=== PATIENT | female | born 1995 | race American Indian/Alaskan Native ===

== ENCOUNTER 2016-09-30 14:43 | Emergency (ER) | payer MEDICAID, OTHER ==
[2016-09-30 14:43] VITALS: BMI 22.4
[2016-09-30] MEDS ORDERED: Sodium Chloride 0.9% 1,000 ML IV ONE (15:22)
[2016-09-30] MEDS ORDERED: Sodium Chloride 0.9% 1,000 ML ONE (15:42)
[2016-09-30 15:45] LABS: BASO # 0.1 K/uL (0.0-0.2); BASO % 0.4 % (0.0-2.0); EOS # 0.1 K/uL (0.0-0.7); EOS % 0.7 % (0.0-4.0); HEMATOCRIT 38.2 % (34.0-47.0); LYMPH # 0.6 K/uL (1.0-4.3); LYMPH % 4.4 % (20.0-40.0); MEAN CELL VOLUME 83.4 fL (81.0-99.0); MEAN CORPUSCULAR HEMOGLOBIN 26.7 pg (27.0-31.0); MEAN PLATELET VOLUME 7.9 fL (7.2-11.7); MONO # 0.7 K/uL (0.0-0.8); MONO % 5.1 % (0.0-10.0); PLATELET COUNT 360 K/uL (130-400); RED CELL DISTRIBUTION WIDTH 15.7 % (11.5-14.5); WHITE BLOOD COUNT 12.8 K/uL (4.8-10.8)
[2016-09-30 15:45] LABS: RBC URINE < 1 /hpf (0-3); URINE BACTERIA RARE (<OCC); URINE BILIRUBIN NEGATIVE (NEGATIVE); URINE BLOOD 1+ (NEGATIVE); URINE COLOR Yellow (YELLOW); URINE GLUCOSE (UA) NORMAL (Normal); URINE KETONE NEGATIVE (NEGATIVE); URINE LEUKOCYTE ESTERASE TRACE Leu/uL (Negative); URINE PROTEIN NEGATIVE (NEGATIVE); URINE UROBILINOGEN NORMAL mg/dL (0.2-1.0); WBC URINE 5 /hpf (0-5)
[2016-09-30 15:52] LABS: CHLORIDE 103 mmol/L (98-107); POTASSIUM 4.1 mmol/L (3.6-5.2); SODIUM 139 mmol/L (132-148)
[2016-09-30 15:54] LABS: ALB/GLOB RATIO 1.2 (1.0-2.1); ALKALINE PHOSPHATASE 123 U/L (38-126); AST/SGOT 31 U/L (14-36); BILIRUBIN,TOTAL 0.6 mg/dL (0.2-1.3); BLOOD UREA NITROGEN 7 mg/dL (7-17); CARBON DIOXIDE 26 mmol/L (22-30); GFR AFRICAN-AMERICAN > 60; TOTAL PROTEIN 8.1 g/dL (6.3-8.3)
[2016-09-30 15:55] LABS: ALT/SGPT 23 U/L (9-52); CALCIUM 9.7 mg/dl (8.6-10.4); GLUCOSE,RANDOM 104 mg/dL (65-105)
--- NOTE | 2016-09-30 16:06 | C.PDOC ---
History Of Present Illness 21 yr old females/p June 2016, presents to the ER with complaints of nausea, vomiting and abdominal pain for the past 2 days but states its been waxing and waning over the past 3 months. Patient states she is sexually active since giving . Denies control, fever, chills, dysuria, incontinence, vaginal discharge, back pain, weakness or numbness. Time Seen by Provider: 09/30/16 15:05 Chief Complaint (Nursing): Abdominal Pain History Per: Patient History/Exam Limitations: no limitations Onset/Duration Of Symptoms: Days (3 days), Waxing/Waning (3 months ) Past Medical History Reviewed: Historical Data, Nursing Documentation, Vital Signs Vital Signs: Last Vital Signs Temp 98.1 F 09/30/16 14:50 Pulse 101 H 09/30/16 14:50 Resp 18 09/30/16 14:50 BP 108/72 09/30/16 14:50 Pulse Ox 97 09/30/16 17:58 - [facility] Procedures DELIVERY OF PRODUCTS OF CONCEPTION, EXTERNAL APPROACH (06/26/16) INJECT/INFUSE NEC (06/12/14) INTRODUCE OF OTH THERAP SUBST INTO FEM REPROD, VIA OPENING (06/26/16) Family History: States: No Known Family Hx - Social History Hx Tobacco Use: No Hx Alcohol Use: No Hx Substance Use: No - Immunization History Hx Tetanus Toxoid Vaccination: Yes Hx Influenza Vaccination: Yes Hx Pneumococcal Vaccination: Yes Review Of Systems Except As Marked, All Systems Reviewed And Found Negative. Constitutional: Negative for: Fever, Chills Gastrointestinal: Positive for: Nausea, Vomiting, Abdominal Pain Genitourinary: Negative for: Dysuria, Incontinence, Vaginal Discharge Musculoskeletal: Negative for: Back Pain Neurological: Negative for: Weakness, Numbness Physical Exam - Physical Exam Appears: Well, Non-toxic, No Acute Distress Skin: Warm, Dry, No Rash Head: Atraumatic, Normacephalic Chest: Symmetrical, No Tenderness Cardiovascular: Rhythm Regular, No Murmur Respiratory: Normal Breath Sounds, No Rales, No Rhonchi, No Wheezing Gastrointestinal/Abdominal: Soft, Tenderness (Diffuse), No Mass, No Guarding, No Rebound Pelvic: No Vaginal Discharge, No Mass Extremity: Normal ROM, No Swelling Neurological/Psych: Oriented x3, Normal Speech, Normal Motor ED Course And Treatment - Laboratory Results Result Diagrams: 09/30/16 15:40 09/30/16 15:40 Lab Interpretation: Abnormal (+ mild leukocytosis , ? related to small bowel or vomiting, UA neg,) Urine POC: Negative O2 Sat by Pulse Oximetry: 97 - Radiology CXR: Interpreted by Me CXR Interpretation: Yes: No Acute Disease - Other Rad X-Ray - Obstructive Series X-Ray: Viewed By Me, Read By Radiologist Interpretation: Constipation. Nonobstructive bowel gas pattern. - CT Scan/US US - Pelvis Other Rad Studies (CT/US): Read By Radiologist, Radiology Report Reviewed CT/US Interpretation: HISTORY: vague belly pain 3 mo post . COMPARISON: None available. TECHNIQUE: Transabdominal and transvaginal pelvic ultrasound was performed. FINDINGS: UTERUS: Measures 7.0 x 3.1 x 4.2 cm. Anteverted, normal in size and appearance. No fibroid or other mass lesion seen. ENDOMETRIUM: Measures 11 mm in diameter. Unremarkable. CERVIX: No cervical abnormality identified. RIGHT OVARY: Measures 3.7 x 2.2 x 3.8 cm. No solid mass. Normal flow. LEFT OVARY: Measures 3.9 x 2.3 x 3.2 cm. No solid mass. Normal flow. FREE FLUID: There is small amount of free fluid in the cul de sac, likely physiologic. OTHER FINDINGS: None. IMPRESSION: Normal pelvic ultrasound. Reevaluation Time: 18:35 Reassessment Condition: Improved Medical Decision Making Medical Decision Making: PLAN: * X-Ray - Obstructive Series * US - Pelvis * EKG * CBC * CMP * HCG * Urinalysis * Toradol IVP * Sodium Chloride IV * 3 mo post- NOT , no UTI constipated. Disposition Doctor Will See Patient In The: Office Counseled Patient/Family Regarding: Studies Performed, Diagnosis - Disposition Disposition: HOME/ ROUTINE Disposition Time: 18:36 Condition: GOOD - Clinical Impression Clinical Impression: H/O abdominal colic - Scribe Statement The provider has reviewed the documentation as recorded by the Gianna Land Provider Attestation: All medical record entries made by the Yareliibtrisha were at my direction and personally dictated by me. I have reviewed the chart and agree that the record accurately reflects my personal performance of the history, physical exam, medical decision making, and the department course for this patient. I have also personally directed, reviewed, and agree with the discharge instructions and disposition.
--- NOTE | 2016-09-30 16:43 | RAD ---
PROCEDURE: Radiographs of the chest and abdomen (obstructive series) title of HISTORY: abd pain COMPARISON: No prior. TECHNIQUE: AP radiograph of the chest, with upright and supine radiographs of the abdomen. FINDINGS: CHEST: Lungs: Clear. Cardiovascular: Normal size heart. No pulmonary vascular congestion. Pleura: No pleural fluid. No pneumothorax. Other findings: None. ABDOMEN AND PELVIS: Bowel: There is large amount of stool in the colon. No evidence of bowel dilatation or differential air-fluid levels. Free air: None. Bones: Unremarkable. Other findings: None. IMPRESSION: Constipation. Nonobstructive bowel gas pattern. Clear lungs.
[2016-09-30 17:37] LABS: BASOPHIL 1 % (0-2); EOSINOPHIL 2 % (0-4); NEUTROPHIL 92 % (50-75); TOTAL CELLS COUNTED 100
[2016-09-30] MEDS ORDERED: Iodixanol 320 MG/ML 100 ML BOTTLE IV ONE (17:40)
--- NOTE | 2016-09-30 17:55 | US ---
HISTORY: vague belly pain 3 mo post COMPARISON: None available. TECHNIQUE: Transabdominal and transvaginal pelvic ultrasound was performed. FINDINGS: UTERUS: Measures 7.0 x 3.1 x 4.2 cm. Anteverted, normal in size and appearance. No fibroid or other mass lesion seen. ENDOMETRIUM: Measures 11 mm in diameter. Unremarkable. CERVIX: No cervical abnormality identified. RIGHT OVARY: Measures 3.7 x 2.2 x 3.8 cm. No solid mass. Normal flow. LEFT OVARY: Measures 3.9 x 2.3 x 3.2 cm. No solid mass. Normal flow. FREE FLUID: There is small amount of free fluid in the cul de sac, likely physiologic. OTHER FINDINGS: None. IMPRESSION: Normal pelvic ultrasound.
--- NOTE | 2016-09-30 18:14 | CT ---
PROCEDURE: CT Abdomen and Pelvis with contrast HISTORY: vague abd, 3 mo post-, + leukocytosis COMPARISON: None. TECHNIQUE: A CT scan of the abdomen and pelvis was performed after intravenous administration of contrast. Oral contrast was not administered. Contrast dose: 100 mL Visipaque 320 Radiation dose: Total exam DLP = 472.820 mGy-cm. This CT exam was performed using one or more of the following dose reduction techniques: Automated exposure control, adjustment of the mA and/or kV according to patient size, and/or use of iterative reconstruction technique. FINDINGS: LOWER THORAX: There is bibasilar subsegmental atelectasis. LIVER: The liver is normal in size. There is homogeneous enhancement without focal lesion. GALLBLADDER AND BILE DUCTS: There are no calcified gallstones. PANCREAS: The pancreas is normal in size and there is homogeneous enhancement without ductal dilatation or focal mass. SPLEEN: The spleen is normal in size and there is homogeneous enhancement without focal lesion. ADRENALS: Both adrenal glands are normal in size without discrete nodule. KIDNEYS AND URETERS: Both kidneys are normal in size and there is homogeneous enhancement without hydronephrosis or focal mass. VASCULATURE: No evidence of aortic aneurysm or dissection. BOWEL: The proximal small bowel loops are normal in caliber. There is mild dilatation of fluid-filled mid small bowel loops. The distal small bowel loops are normal in caliber. There is large amount of stool in the colon. There is no evidence of bowel dilatation, wall thickening or obstruction. APPENDIX: Normal appendix. PERITONEUM: No free intraperitoneal air. There is small amount of free fluid in the right lower quadrant. Small amount of free fluid in the pelvis is likely physiologic. LYMPH NODES: No enlarged lymph nodes. BLADDER: Grossly normal in appearance. REPRODUCTIVE: The uterus is normal in size. No adnexal masses. BONES: No acute fracture. Within normal limits for the patient's age. OTHER FINDINGS: None. IMPRESSION: 1. Mild dilatation of fluid-filled mid small bowel loops and small amount of free fluid in the right lower quadrant, nonspecific and could be related to nonspecific infectious/inflammatory enteritis. No evidence of bowel obstruction. Constipation. 2. No CT evidence for acute appendicitis.
[2016-09-30 18:51] VITALS: BP 103/69; PULSE 79; RESP 17; TEMP 97.9; O2SAT 100
== END 2016-09-30 19:01 | disposition home or self-care (01) ==
LOC: C.ER 14:43
DX: R10.84 Generalized abdominal pain (principal)
CPT/HCPCS: 74022; 74177; 76830; 76856; 80053; 81001; 83690; 84703; 85025; 96361; 96374; 99284; J1885; J7040; Q9967

== ENCOUNTER 2017-01-28 16:31 | Emergency (ER) | payer OTHER ==
[2017-01-28 16:31] VITALS: BMI 22.4
[2017-01-28 16:42] VITALS: BP 106/71; PULSE 82; RESP 18; TEMP 98.6; O2SAT 100
[2017-01-28 17:07] LABS: RBC URINE 2 /hpf (0-3); URINE BACTERIA OCC (<OCC); URINE BILIRUBIN NEGATIVE (NEGATIVE); URINE BLOOD 1+ (NEGATIVE); URINE COLOR Yellow (YELLOW); URINE GLUCOSE (UA) NORMAL (Normal); URINE KETONE NEGATIVE (NEGATIVE); URINE LEUKOCYTE ESTERASE NEG Leu/uL (Negative); URINE PROTEIN NEGATIVE (NEGATIVE); WBC URINE 11 /hpf (0-5)
--- NOTE | 2017-01-28 17:18 | C.PDOC ---
History Of Present Illness 21 yo female c/o being 6 days late on her menstruation. PT notes she is " usually 4 days late" but now she is six days late and is wandering if she is . Also notes lower back pain. No trauma. Worse with movement. pt denies known trauma or injury, fever, chills, abd. pain, N/V/D, UTI sx, saddle anesthesia, urinary or fecal incontinence. Time Seen by Provider: 01/28/17 16:43 Chief Complaint (Nursing): Medical Clearance History Per: Patient History/Exam Limitations: no limitations Onset/Duration Of Symptoms: Days Current Symptoms Are (Timing): Still Present Past Medical History Vital Signs: Last Vital Signs Temp 98.6 F 01/28/17 16:40 Pulse 82 01/28/17 16:40 Resp 18 01/28/17 16:40 BP 106/71 01/28/17 16:40 Pulse Ox 100 01/28/17 17:18 - [facility] Procedures DELIVERY OF PRODUCTS OF CONCEPTION, EXTERNAL APPROACH (06/26/16) INJECT/INFUSE NEC (06/12/14) INTRODUCE OF OTH THERAP SUBST INTO FEM REPROD, VIA OPENING (06/26/16) Family History: States: Unknown Family Hx - Social History Hx Tobacco Use: No Hx Alcohol Use: No Hx Substance Use: No - Immunization History Hx Tetanus Toxoid Vaccination: Yes Hx Influenza Vaccination: Yes Hx Pneumococcal Vaccination: Yes Review Of Systems Except As Marked, All Systems Reviewed And Found Negative. Genitourinary: Negative for: Vaginal Discharge, Vaginal Bleeding Musculoskeletal: Positive for: Back Pain Physical Exam - Physical Exam Appears: Well, Non-toxic, No Acute Distress Skin: Normal Color, Warm, Dry Head: Atraumatic, Normacephalic Eye(s): bilateral: Normal Inspection, EOMI Nose: Normal Neck: Normal, Normal ROM, Supple Chest: Symmetrical Cardiovascular: Rhythm Regular Respiratory: Normal Breath Sounds Gastrointestinal/Abdominal: Normal Exam, Soft, No Tenderness Back: Normal Inspection, No CVA Tenderness, No Vertebral Tenderness Extremity: Normal ROM Neurological/Psych: Oriented x3, Normal Speech, Normal Motor, Normal Sensation Gait: Steady ED Course And Treatment O2 Sat by Pulse Oximetry: 100 Progress Note: Pt is asymptomatic for UTI. UA shows no leuk or nitrates. 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 Disposition - Disposition Disposition: HOME/ ROUTINE Disposition Time: 17:17 Condition: STABLE Additional Instructions: Follow up with your primary medical doctor or clinic in 2-5 days for further evaluation. Return to the emergency department at any time if symptoms persist or worsen. Prescriptions: Naproxen [Naprosyn] 1 tab PO BID PRN #20 tab PRN Reason: Pain Instructions: Amenorrhea (GEN) Forms: [employer] (Singaporean) - Clinical Impression Clinical Impression: test negative, Back pain
== END 2017-01-28 17:29 | disposition home or self-care (01) ==
LOC: C.ER 16:31
DX: Z32.02 Encounter for pregnancy test, result negative (principal); M54.9 Dorsalgia, unspecified

== ENCOUNTER 2017-09-13 04:04 | Emergency (ER) | payer OTHER ==
[2017-09-13 04:05] VITALS: BMI 22.4
--- NOTE | 2017-09-13 04:26 | C.PDOC ---
Time Seen by Provider: 09/13/17 04:25 Chief Complaint (Nursing): Abdominal Pain Past Medical History Vital Signs: Last Vital Signs Temp 98.3 F 09/13/17 04:15 Pulse 100 H 09/13/17 04:15 Resp 20 09/13/17 04:15 BP 101/68 09/13/17 04:15 Pulse Ox 100 09/13/17 04:15 - [facility] Procedures DELIVERY OF PRODUCTS OF CONCEPTION, EXTERNAL APPROACH (06/26/16) INJECT/INFUSE NEC (06/12/14) INTRODUCE OF OTH THERAP SUBST INTO FEM REPROD, VIA OPENING (06/26/16) Family History: States: Unknown Family Hx - Social History Hx Tobacco Use: No Hx Alcohol Use: No Hx Substance Use: No - Immunization History Hx Tetanus Toxoid Vaccination: Yes Hx Influenza Vaccination: Yes Hx Pneumococcal Vaccination: Yes ED Course And Treatment O2 Sat by Pulse Oximetry: 100 Disposition Counseled Patient/Family Regarding: Studies Performed, Diagnosis - Disposition Disposition Time: 04:25
[2017-09-13] MEDS ORDERED: Sodium Chloride 0.9% 1,000 ML IV ONE ×2 (04:38→06:33)
[2017-09-13 04:42] LABS: HCG,QUALITATIVE URINE NEGATIVE (NEGATIVE)
[2017-09-13 04:47] LABS: SQUAMOUS EPITHIAL 3 /hpf (0-5); URINE BILIRUBIN NEGATIVE (NEGATIVE); URINE BLOOD 3+ (NEGATIVE); URINE CLARITY Hazy (Clear); URINE COLOR Yellow (YELLOW); URINE GLUCOSE (UA) NORMAL (Normal); URINE LEUKOCYTE ESTERASE 1+ Leu/uL (Negative); URINE PROTEIN 1+ mg/dL (NEGATIVE)
[2017-09-13 04:56] LABS: BASO % 0.3 % (0.0-2.0); EOS # 0.4 K/uL (0.0-0.7); EOS % 2.6 % (0.0-4.0); HEMOGLOBIN 12.4 g/dL (11.0-16.0); LYMPH # 1.3 K/uL (1.0-4.3); LYMPH % 8.5 % (20.0-40.0); MEAN CELL VOLUME 88.1 fL (81.0-99.0); MEAN CORPUSCULAR HEMOGLOBIN 29.2 pg (27.0-31.0); MEAN CORPUSCULAR HGB CONC 33.2 g/dL (33.0-37.0); MEAN PLATELET VOLUME 8.2 fL (7.2-11.7); MONO # 0.9 K/uL (0.0-0.8); MONO % 6.2 % (0.0-10.0); NEUT # 12.6 K/uL (1.8-7.0); NEUT % 82.4 % (50.0-75.0); PLATELET COUNT 277 K/uL (130-400); RBC 4.24 Mil/uL (3.80-5.20); RED CELL DISTRIBUTION WIDTH 14.6 % (11.5-14.5); WHITE BLOOD COUNT 15.3 K/uL (4.8-10.8)
--- NOTE | 2017-09-13 05:03 | C.PDOC ---
History Of Present Illness <Bhargavi Colon - Last Filed: 09/13/17 06:43> <Wanda Tamalbino - Last Filed: 09/13/17 06:54> 22 year old female presents to the emergency department with complaints of lower abdominal pain since late last night. Patient reports her menses started three days ago and has occasional cramping. She reports pain usually relieved with Ibuprofen, but this time her pain was worse than ever experienced and not relieved with Ibuprofen. Patient reports one episode of non-bloody diarrhea, but denies fever or vomiting. (IsaiahRoloBhargavi L) History Per: Patient History/Exam Limitations: no limitations Onset/Duration Of Symptoms: Hrs Current Symptoms Are (Timing): Still Present Location Of Pain/Discomfort: RLQ, LLQ, Periumbilical Radiation Of Pain To:: None Quality Of Discomfort: Cramping, "Pain" Associated Symptoms: Diarrhea. denies: Fever, Vomiting <Bhargavi Colon Mary Kay - Last Filed: 09/13/17 06:43> <YonatanWandaalbino - Last Filed: 09/13/17 06:54> Time Seen by Provider: 09/13/17 04:25 Chief Complaint (Nursing): Abdominal Pain Past Medical History Reviewed: Historical Data, Nursing Documentation, Vital Signs - Medical History PMH: No Chronic Diseases Surgical History: No Surg Hx Family History: States: No Known Family Hx - Social History Hx Tobacco Use: No Hx Alcohol Use: No Hx Substance Use: No - Immunization History Hx Tetanus Toxoid Vaccination: Yes Hx Influenza Vaccination: Yes Hx Pneumococcal Vaccination: Yes <Bhargavi Colon - Last Filed: 09/13/17 06:43> Vital Signs: Last Vital Signs Temp 97.8 F 09/13/17 06:37 Pulse 82 09/13/17 06:37 Resp 18 09/13/17 06:37 BP 101/58 L 09/13/17 06:37 Pulse Ox 100 09/13/17 06:44 - [facility] Procedures DELIVERY OF PRODUCTS OF CONCEPTION, EXTERNAL APPROACH (06/26/16) INJECT/INFUSE NEC (06/12/14) INTRODUCE OF OTH THERAP SUBST INTO FEM REPROD, VIA OPENING (06/26/16) Review Of Systems Constitutional: Negative for: Fever Gastrointestinal: Positive for: Abdominal Pain, Diarrhea. Negative for: Vomiting, Hematochezia Genitourinary: Positive for: Vaginal Bleeding <Bhargavi Colon - Last Filed: 09/13/17 06:43> Physical Exam - Physical Exam Appears: Non-toxic, Other (uncomfortable) Skin: Warm, Dry, No Rash Head: Atraumatic, Normacephalic Eye(s): bilateral: Normal Inspection Oral Mucosa: Moist Neck: Normal ROM Chest: Symmetrical Cardiovascular: Rhythm Regular, No Murmur Respiratory: Normal Breath Sounds, No Rales, No Rhonchi, No Wheezing Gastrointestinal/Abdominal: Bowel Sounds (active), Soft, Tenderness ( periumbilical and bilateral lower quadrant tenderness), No Guarding, No Rebound Back: Normal Inspection, No CVA Tenderness Extremity: Normal ROM Extremity: Bilateral: Atraumatic, Normal Color And Temperature Neurological/Psych: Oriented x3, Normal Speech, Normal Cognition <Bhargavi Colon - Last Filed: 09/13/17 06:43> ED Course And Treatment - Laboratory Results Result Diagrams: 09/13/17 04:53 09/13/17 04:53 O2 Sat by Pulse Oximetry: 100 (RA) Pulse Ox Interpretation: Normal <Bhargavi Colon - Last Filed: 09/13/17 06:43> - Laboratory Results Result Diagrams: 09/13/17 04:53 09/13/17 04:53 Pulse Ox Interpretation: Normal Reevaluation Time: 06:52 Reassessment Condition: Improved <Farhad Tam - Last Filed: 09/13/17 06:54> Medical Decision Making <Bhargavi Colon - Last Filed: 09/13/17 06:43> <Farhad Tam - Last Filed: 09/13/17 06:54> Medical Decision Making: Impression: Abdominal pain Plan: * Labs * UA * CT A/P Progress: 0500 CBC results show slight leukocytosis [address] order for CT r.o appendicitis, colitis, obstruction. Orders placed for additional labs, blood cultures and Zosyn IVP [address] abdomen 0620 Patient continues to complain of pain. Morphine and IV NS ordered. CT report pending Case signed out to DR Tam, CT is still pending (Bhargavi Colon) Disposition - Disposition Disposition Time: 06:43 - POA Present On Arrival: None <Bhargavi Colon - Last Filed: 09/13/17 06:43> Counseled Patient/Family Regarding: Studies Performed, Diagnosis, Need For Followup, Rx Given <Farhad Tam - Last Filed: 09/13/17 06:54> - Disposition Referrals: [facility] [Outside] [facility] [Outside] Disposition: HOME/ ROUTINE Condition: FAIR Additional Instructions: Please return if symptoms recur. 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 - Scribe Statement The provider has reviewed the documentation as recorded by the Scribe (Herb Morales) <Bhargavi Colon - Last Filed: 09/13/17 06:43> <Farhad Tam - Last Filed: 09/13/17 06:54> - Scribe Statement All medical record entries made by the Scribe were at my direction and personally dictated by me. I have reviewed the chart and agree that the record accurately reflects my personal performance of the history, physical exam, medical decision making, and the department course for this patient. I have also personally directed, reviewed, and agree with the discharge instructions and disposition. (Bhargavi Colon) Sepsis Progress Note - Reassessment Type Reassessment Type: Non-invasive reassessment - Non Invasive Reassessment Were the most recent vital sign reviewed: Yes Cardiovascular: Yes: Regular Rate, Rhythm Respiratory: Yes: Normal Breath Sounds Capillary Refill: Normal (Less than 2 sec) Pulses: Normal Radial Skin: Normal Color <Bhargavi Colon - Last Filed: 09/13/17 06:43> <aFrhad Tam - Last Filed: 09/13/17 06:54> - Non Invasive Reassessment Vital Sign (Latest): Temp Pulse Resp BP Pulse Ox 97.8 F 82 18 101/58 L 100 09/13/17 06:37 09/13/17 06:37 09/13/17 06:37 09/13/17 06:37 09/13/17 06:44
[2017-09-13 05:09] LABS: ALBUMIN 3.7 g/dL (3.5-5.0); ALT/SGPT 15 U/L (9-52); AST/SGOT 15 U/L (14-36); BLOOD UREA NITROGEN 11 mg/dL (7-17); CALCIUM 8.4 mg/dl (8.6-10.4); GFR AFRICAN-AMERICAN > 60; GFR NON-AFRICAN AMERICAN > 60
[2017-09-13 05:30] LABS: BANDS 2 % (0-2); EOSINOPHIL 2 % (0-4); LYMPHOCYTE 12 % (20-40); MONOCYTE 1 % (0-10); NEUTROPHIL 83 % (50-75); PLATELET ESTIMATE NORMAL (NORMAL); TOTAL CELLS COUNTED 100
[2017-09-13] MEDS ORDERED: Piperacillin/Tazobact 3.375 gm 100 ML IV STA (05:39)
[2017-09-13] MEDS ORDERED: Iodixanol 320 MG/ML 100 ML BOTTLE IV ONE (05:43)
[2017-09-13] MEDS ORDERED: Piperacillin/Tazobact 3.375 gm 100 ML IVPB ONE (05:51)
[2017-09-13 06:37] VITALS: RESP 18
[2017-09-13] MEDS ORDERED: Morphine 4 MG/ML VIAL ONE (06:49)
--- NOTE | 2017-09-13 06:50 | CT ---
EXAM: CT Abdomen and Pelvis With Intravenous Contrast CLINICAL HISTORY: 22 years old, female; Pain; Abdominal pain; Periumbilical; Additional info: Lower abdominal pain diarrhea TECHNIQUE: Axial computed tomography images of the abdomen and pelvis with intravenous contrast. All CT scans at this facility use one or more dose reduction techniques, viz.: automated exposure control; ma/kV adjustment per patient size (including targeted exams where dose is matched to indication; i.e. head); or iterative reconstruction technique. Coronal and sagittal reformatted images were created and reviewed. CONTRAST: 100 mL of visipaque administered intravenously. COMPARISON: CT - ABD PELVIS IV CONTRAST ONLY 2016-09-30 17:52 FINDINGS: Lung bases: Minimal atelectasis. ABDOMEN: Liver: Unremarkable. No mass. Gallbladder and bile ducts: No calcified stones. No ductal dilation. Pancreas: No ductal dilation. No mass. Spleen: No splenomegaly. Adrenals: No mass. Kidneys and ureters: No mass. No hydronephrosis. Stomach and bowel: Fluid within small bowel. Minimal fluid within cecum. No definite mural thickening. No obstruction. PELVIS: Appendix: Normal caliber. No definite inflammation. Bladder: Unremarkable. Reproductive: Unremarkable as visualized. ABDOMEN and PELVIS: Intraperitoneal space: Trace free fluid within pelvis. No free air. Bones/joints: No acute fracture. Soft tissues: Unremarkable. Vasculature: Unremarkable. No aneurysm. Lymph nodes: No pathologically enlarged lymph nodes. IMPRESSION: 1. Fluid/loose stool within bowel may suggest diarrhea illness. 2. Incidental/non-acute findings are described above.
[2017-09-13 08:29] VITALS: PULSE 96; TEMP 99.2; O2SAT 97
[2017-09-13 09:14] VITALS: BP 98/62
== END 2017-09-13 09:14 | disposition home or self-care (01) ==
LOC: C.ER 04:04
DX: R19.7 Diarrhea, unspecified (principal); R10.30 Lower abdominal pain, unspecified
CPT/HCPCS: 74177; 80053; 81001; 83605; 84703; 85025; 87040; 87086; 96361; 96365; 96375; 99285; J1885; J2270; J2543; J7040; Q9967

== ENCOUNTER 2018-05-06 00:10 | Emergency (ER) | payer OTHER ==
[2018-05-06 00:10] VITALS: BMI 22.4
[2018-05-06 00:24] VITALS: RESP 20
--- NOTE | 2018-05-06 01:32 | C.PDOC ---
History Of Present Illness 22 year old female presents to the ED for evaluation. Patient reports she put a tampon in today at 14:00, went to take it out at 19:30 but was unable to do it. Patient states tampon is stuck inside of her. Patient denies fever, chills, nausea, vomit, diarrhea, abdominal pain, dysuria, hematuria, vaginal bleeding, vaginal discharge, back pain, rash. Time Seen by Provider: 05/06/18 00:22 Chief Complaint (Nursing): Female Genitourinary History Per: Patient History/Exam Limitations: no limitations Onset/Duration Of Symptoms: Hrs Current Symptoms Are (Timing): Still Present Quality Of Discomfort: Other Associated Symptoms: denies: Nausea, Vomiting, Diarrhea, Urinary Symptoms Recent travel outside of the [place]: No Additional History Per: Patient Abnormal Vaginal Bleeding: No Past Medical History Reviewed: Historical Data, Nursing Documentation, Vital Signs Vital Signs: Last Vital Signs Temp 98 F 05/06/18 00:14 Pulse 78 05/06/18 00:14 Resp 20 05/06/18 00:14 BP 113/82 05/06/18 00:14 Pulse Ox 99 05/06/18 00:14 - Medical History PMH: No Chronic Diseases Surgical History: No Surg Hx - [facility] Procedures DELIVERY OF PRODUCTS OF CONCEPTION, EXTERNAL APPROACH (06/26/16) INJECT/INFUSE NEC (06/12/14) INTRODUCE OF OTH THERAP SUBST INTO FEM REPROD, VIA OPENING (06/26/16) Family History: States: Unknown Family Hx - Social History Hx Tobacco Use: No Hx Alcohol Use: No Hx Substance Use: No - Immunization History Hx Tetanus Toxoid Vaccination: No Hx Influenza Vaccination: No Hx Pneumococcal Vaccination: No Review Of Systems Constitutional: Negative for: Fever, Chills Cardiovascular: Negative for: Chest Pain Respiratory: Negative for: Shortness of Breath Gastrointestinal: Negative for: Nausea, Vomiting, Abdominal Pain Genitourinary: Negative for: Dysuria, Vaginal Discharge, Vaginal Bleeding Skin: Negative for: Rash Neurological: Negative for: Weakness, Numbness Physical Exam - Physical Exam Appears: Non-toxic, No Acute Distress Skin: Normal Color, Warm, Dry, No Rash Head: Atraumatic, Normacephalic Eye(s): bilateral: Normal Inspection Oral Mucosa: Moist Neck: Normal ROM, Supple Chest: Symmetrical Cardiovascular: Rhythm Regular, No Friction Rub, No Murmur Respiratory: Normal Breath Sounds, No Rales, No Rhonchi, No Wheezing Gastrointestinal/Abdominal: Soft, No Tenderness, No Guarding, No Rebound Back: No CVA Tenderness Pelvic: Normal External Exam (Barrel Lapper for pelvic exam: Katey Whitfield tech), No Vaginal Bleeding, No Cervical Motion Tenderness, No Cervix Open, No Adnexal Tenderness, No Tender Uterus, Other (no foreign body seen in the vault) Extremity: Normal ROM, No Tenderness, No Swelling Neurological/Psych: Oriented x3, Normal Speech, Normal Cognition, Normal Motor Gait: Steady ED Course And Treatment O2 Sat by Pulse Oximetry: 99 (ON RA) Pulse Ox Interpretation: Normal Medical Decision Making Medical Decision Making: On reassessment, patient is resting comfortably, and is in no acute distress. Patient was instructed to follow up with physician/clinic in 1-2 days for further evaluation Disposition - Disposition Referrals: [facility] [Outside] [facility] [Outside] Disposition: HOME/ ROUTINE Disposition Time: 01:29 Condition: GOOD Additional Instructions: WE DID NOT SEE ANY TAMPON ON EXAM. check at home if it fell out. RETURN TO THE ED IF WORSENED PAIN OR BLEEDING. 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 - Scribe Statement The provider has reviewed the documentation as recorded by the Scribe Caio Rodriguez All medical record entries made by the Scribe were at my direction and personally dictated by me. I have reviewed the chart and agree that the record accurately reflects my personal performance of the history, physical exam, medical decision making, and the department course for this patient. I have also personally directed, reviewed, and agree with the discharge instructions and disposition.
[2018-05-06 01:48] VITALS: BP 121/69; PULSE 87; TEMP 98.1
[2018-05-06 05:44] VITALS: O2SAT 99
== END 2018-05-06 01:47 | disposition home or self-care (01) ==
LOC: C.ER 00:10
DX: T19.2XXA Foreign body in vulva and vagina, initial encounter (principal); X58.XXXA Exposure to other specified factors, initial encounter

== ENCOUNTER 2018-07-10 15:56 | Emergency (ER) | payer OTHER ==
[2018-07-10 15:56] VITALS: BMI 22.4
--- NOTE | 2018-07-10 16:29 | C.PDOC ---
History Of Present Illness 23 y/o female presents to the ED complaining of acute exacerbation of chronic epigastric pain since last night. Patient is a poor historian, shouting I need pain medicine now! throughout history. She admits to having similar pain i ntermittently in the past, but it only happens if I moved a certain way and current episode is not associated with triggering movement. She reports associated nausea and vomiting. No fever. No diarrhea. Prior surgical hx is negative. Patient is not on GI meds. She is uncooperative with providing full history, interrupting it huuuuuuuuurts. <Maura Olea - Last Filed: 07/10/18 19:47> History Per: Patient History/Exam Limitations: other (poor historian) Onset/Duration Of Symptoms: Worse Since (last night) Current Symptoms Are (Timing): Still Present Severity: Severe Location Of Pain/Discomfort: Epigastric Radiation Of Pain To:: None Associated Symptoms: Nausea, Vomiting <Maura Olea - Last Filed: 07/10/18 19:47> <Laureen Holliday - Last Filed: 07/10/18 21:05> Time Seen by Provider: 07/10/18 16:16 Chief Complaint (Nursing): Abdominal Pain Past Medical History Reviewed: Historical Data, Nursing Documentation, Vital Signs Vital Signs: Last Vital Signs Temp 98.2 F 07/10/18 16:12 Pulse 108 H 07/10/18 16:12 Resp 18 07/10/18 16:12 BP 138/83 07/10/18 16:12 Pulse Ox 98 07/10/18 16:12 - Medical History PMH: No Chronic Diseases Surgical History: No Surg Hx - [facility] Procedures DELIVERY OF PRODUCTS OF CONCEPTION, EXTERNAL APPROACH (06/26/16) INJECT/INFUSE NEC (06/12/14) INTRODUCE OF OTH THERAP SUBST INTO FEM REPROD, VIA OPENING (06/26/16) Family History: States: Unknown Family Hx - Social History Hx Tobacco Use: No Hx Alcohol Use: No Hx Substance Use: No - Immunization History Hx Tetanus Toxoid Vaccination: No Hx Influenza Vaccination: No Hx Pneumococcal Vaccination: No <Maura Olea - Last Filed: 07/10/18 19:47> Vital Signs: Last Vital Signs Temp 98.5 F 07/10/18 18:29 Pulse 87 07/10/18 18:29 Resp 16 07/10/18 18:29 BP 132/86 07/10/18 18:29 Pulse Ox 98 07/10/18 19:47 - [facility] Procedures DELIVERY OF PRODUCTS OF CONCEPTION, EXTERNAL APPROACH (06/26/16) INJECT/INFUSE NEC (06/12/14) INTRODUCE OF OTH THERAP SUBST INTO FEM REPROD, VIA OPENING (06/26/16) <Laureen Holliday - Last Filed: 07/10/18 21:05> Review Of Systems Review Of Systems: ROS cannot be obtained secondary to pt's inabilty to answer questions. <LeftyMaura - Last Filed: 07/10/18 19:47> Physical Exam - Physical Exam Appears: Non-toxic, No Acute Distress Skin: Warm, Dry, No Rash Head: Atraumatic, Normacephalic Eye(s): bilateral: Normal Inspection, PERRL, EOMI Nose: Normal Oral Mucosa: Moist Neck: Normal ROM, Supple Chest: Symmetrical Cardiovascular: Rhythm Regular, No Murmur Respiratory: Normal Breath Sounds, No Accessory Muscle Use, Other (NARD) Gastrointestinal/Abdominal: Soft, Tenderness (?epigastric tenderness but distractable), No Guarding, No Rebound Back: No CVA Tenderness Extremity: Bilateral: Atraumatic, Normal Color And Temperature Pulses: Left Radial: Normal, Right Radial: Normal Neurological/Psych: Other (Labile emotions, pt noted to vary from writhing and unintelligible speech to crossing arms, lying still on stretcher and being argumentative, to clear speech/thought the next moment when does not receive immediate pain medication; No acute intoxication; No focal deficits) <Maura Olea - Last Filed: 07/10/18 19:47> ED Course And Treatment - Laboratory Results Result Diagrams: 07/10/18 16:48 07/10/18 16:48 O2 Sat by Pulse Oximetry: 98 (RA) Pulse Ox Interpretation: Normal - CT Scan/US Abdominal US Other Rad Studies (CT/US): Read By Radiologist, Radiology Report Reviewed CT/US Interpretation: Accession No. : [id number]. Patient Name / ID : TANI LAURENT / [id number]. Exam Date : 07/10/2018 17:22:45 ( Approved ). Study Co mment : Sex / Age : F / 23Y. Creator : Susan Morales MD. Dictator : Susan Morales MD. Medical Reception : Cps Team Lead : Susan Morales MD. Approver2 : Report Date : 07/10/2018 18:07:14. My Comment : . Date of service: 07/10/2018. HISTORY: Abdominal pain. COMPARISON: None. TECHNIQUE: Grayscale imaging was performed. FINDINGS: LIVER: Measures 13.5 cm in length. There is diffuse increased echogenicity of the liver parenchyma. No mass. No intrahepatic bile duct dilatation. GALLBLADDER: There are no gallstones, wall thickening or pericholecystic fluid. The sonographic Huertas's sign is negative. COMMON BILE DUCT: Measures 3.4 mm. No stones. No dilatation. PANCREAS: Unremarkable as visualized. No mass. No ductal dilatation. RIGHT KIDNEY: Measures 10.4 cm in length. Normal echogenicity. No calculus, mass, or hydronephrosis. AORTA: No aneurysmal dilatation. IVC: Unremarkable. OTHER FINDINGS: None . IMPRESSION: No cholelithiasis or biliary dilatation. Fatty liver. <Maura Olea - Last Filed: 07/10/18 19:47> - Laboratory Results Result Diagrams: 07/10/18 16:48 07/10/18 16:48 Lab Results: Total Bilirubin 0.8 mg/dL (0.2-1.3) 07/10/18 16:48 AST 270 U/L (14-36) H D 07/10/18 16:48 ALT 131 U/L (9-52) H D 07/10/18 16:48 Alkaline Phosphatase 132 U/L (38-126) H 07/10/18 16:48 Total Protein 7.8 g/dL (6.3-8.3) 07/10/18 16:48 Albumin 4.5 g/dL (3.5-5.0) 07/10/18 16:48 Globulin 3.3 gm/dL (2.2-3.9) 07/10/18 16:48 Albumin/Globulin Ratio 1.4 (1.0-2.1) 07/10/18 16:48 Lipase 24 U/L (23-300) 07/10/18 16:48 Urine Color Yellow (YELLOW) 07/10/18 16:20 Urine Clarity Clear (Clear) 07/10/18 16:20 Urine pH 7.0 (5.0-8.0) 07/10/18 16:20 Ur Specific [place] 1.013 (1.003-1.030) 07/10/18 16:20 Urine Protein Negative mg/dL (NEGATIVE) 07/10/18 16:20 Urine Glucose (UA) Normal mg/dL (Normal) 07/10/18 16:20 Urine Ketones Negative mg/dL (NEGATIVE) 07/10/18 16:20 Urine Blood Negative (NEGATIVE) 07/10/18 16:20 Urine Nitrate Negative (NEGATIVE) 07/10/18 16:20 Urine Bilirubin Negative (NEGATIVE) 07/10/18 16:20 Urine Urobilinogen Normal mg/dL (0.2-1.0) 07/10/18 16:20 Ur Leukocyte Esterase Neg Shanna/uL (Negative) 07/10/18 16:20 Urine WBC (Auto) 1 /hpf (0-5) 07/10/18 16:20 Urine RBC (Auto) < 1 /hpf (0-3) 07/10/18 16:20 Ur Squamous Epith Cells 2 /hpf (0-5) 07/10/18 16:20 Urine Bacteria Rare (<OCC) 07/10/18 16:20 - CT Scan/US Abdomen/Pelvis CT Other Rad Studies (CT/US): Interpreted By Me, Read By Radiologist CT/US Interpretation: Name:ANASTASIIA FREIRE Exam Date:Jul 10, 2018 6:51:34 PM EDT. Modality Type:CT\SR. Description:CT - ABDOMEN AND PELVIS. Gender:F Laterality:Not applicable. :96 Referring Physician:Maura Olea MD. EXAM: CT Abdomen and Pelvis with IV contrast. CLINICAL HISTORY: Epig and left abd pain. TECHNIQUE: Axial computed tomography images of the abdomen and pelvis with intravenous contrast. 0.00 mGy-cm. CONTRAST: With; VISI 320 100MLS. COMPARISON: None provided. FIN DINGS: LUNG BASES: The lung bases appear clear. No pleural effusions are seen. LIVER: Unremarkable. GALLBLADDER AND BILE DUCTS: The gallbladder appears within normal limits. No radioopaque gallstones are seen. No biliary ductal dilatation is evident. PANCREAS: Unremarkable. SPLEEN: Unremarkable. ADRENAL GLANDS: Unremarkable. KIDNEYS, URETERS, AND BLADDER: The kidneys appear within normal limits. There is no hydronephrosis or hydroureter. No urinary calculi are seen. STOMACH AND BOWEL: Unremarkable appearance of the stomach and bowel. No evidence of bowel obstruction. No evidence suggesting enteritis or colitis. APPENDIX: No evidence of acute appendicitis on CT examination. PERITONEUM: No free fluid. No free air. LYMPH NODES: No lymphadenopathy is evident. REPRODUCTIVE: Uterus appears within normal limits. Mild cystic changes both ovaries. Small amount of free fluid within the cul-de-sac. VASCULATURE: No evidence of abdominal aortic aneurysm. BONES: No aggressive appearing osseous lesion. No acute osseous pathology evident. IMPRESSION: No suspicious mass or lymphadenopathy. Mild cystic changes both ovaries with small amount of free fluid within the cul-de-sac. Clinical correlation is advised. . Electronically signed on Jul 10, 2018 7:26:53 PM EDT by: Yash Rose M.D., Certified by [facility], Diagnostic Radiology <Laureen Holliday - Last Filed: 07/10/18 21:05> Progress - Re-Evaluation Re-evaluation Note: 07/10/18 17:15 US REVIEWED. WILL OBTAIN CT A/P. 07/10/18 19:02 APPEARS COMFORTABLE NAD. PENDING CT REPORT - Data Reviewed Data Reviewed: Lab, Diagnostic imaging, Old records <Maura Olea - Last Filed: 07/10/18 19:47> Medical Decision Making Medical Decision Making: Plan: - Blood work - UA, UDS - 20 mg IV Pepcid - 2 mg IV Morphine - Pending abdominal US <Maura Olea - Last Filed: 07/10/18 19:47> Medical Decision Making: Patient signed out to Dr. Laureen Holliday. Pending CT results Re-evaluation: Patient symptoms improved CT unremarkable Patient given prescription for Zofran and Pepcid Patient will follow up with PMD at [facility] <Laureen Holliday Last Filed: 07/10/18 21:05> Disposition Counseled Patient/Family Regarding: Studies Performed, Diagnosis - Disposition Disposition Time: 19:02 <LeftyMaura - Last Filed: 07/10/18 19:47> <Laureen Holliday - Last Filed: 07/10/18 21:05> - Disposition Condition: STABLE Forms: [facility] (Tajik) - Clinical Impression Clinical Impression: Epigastric pain - Scribe Statement The provider has reviewed the documentation as recorded by the Gianna Dewey Provider Attestation: All medical record entries made by the Gianna were at my direction and personally dictated by me. I have reviewed the chart and agree that the record accurately reflects my personal performance of the history, physical exam, m edical decision making, and the department course for this patient. I have also personally directed, reviewed, and agree with the discharge instructions and disposition. <Maura Olea - Last Filed: 07/10/18 19:47> Physician Patient Turnover Patient Signed Over To: Laureen Holliday Handoff Comments: STACY WESTON, MAXIMOO <Maura Olea - Last Filed: 07/10/18 19:47>
[2018-07-10] MEDS ORDERED: Sodium Chloride 0.9% 1,000 ML IV ONE (16:50)
[2018-07-10 16:53] LABS: MEAN CELL VOLUME 88.6 fL (81.0-99.0); MEAN CORPUSCULAR HEMOGLOBIN 28.6 pg (27.0-31.0); MEAN CORPUSCULAR HGB CONC 32.2 g/dL (33.0-37.0); RBC 4.54 Mil/uL (3.80-5.20); RED CELL DISTRIBUTION WIDTH 14.5 % (11.5-14.5); WHITE BLOOD COUNT 14.8 K/uL (4.8-10.8)
[2018-07-10] MEDS ORDERED: Sodium Chloride 0.9% 1,000 ML ONE (16:53)
[2018-07-10 16:54] LABS: BASO % 0.2 % (0.0-2.0); EOS # 0.1 K/uL (0.0-0.7); EOS % 0.3 % (0.0-4.0); LYMPH # 0.8 K/uL (1.0-4.3); LYMPH % 5.6 % (20.0-40.0); MEAN PLATELET VOLUME 7.6 fL (7.2-11.7); MONO # 0.9 K/uL (0.0-0.8); MONO % 6.2 % (0.0-10.0); NEUT % 87.7 % (50.0-75.0); PLATELET COUNT 387 K/uL (130-400)
[2018-07-10 16:58] LABS: SQUAMOUS EPITHIAL 2 /hpf (0-5); URINE BACTERIA RARE (<OCC); URINE BILIRUBIN NEGATIVE (NEGATIVE); URINE BLOOD NEGATIVE (NEGATIVE); URINE CLARITY Clear (Clear); URINE COLOR Yellow (YELLOW); URINE GLUCOSE (UA) NORMAL (Normal); URINE LEUKOCYTE ESTERASE NEG Leu/uL (Negative); URINE PROTEIN NEGATIVE (NEGATIVE); URINE UROBILINOGEN NORMAL mg/dL (0.2-1.0)
[2018-07-10 17:12] LABS: ALB/GLOB RATIO 1.4 (1.0-2.1); ALBUMIN 4.5 g/dL (3.5-5.0); ALT/SGPT 131 U/L (9-52); AST/SGOT 270 U/L (14-36); BLOOD UREA NITROGEN 7 mg/dL (7-17); CALCIUM 9.5 mg/dl (8.6-10.4); GFR NON-AFRICAN AMERICAN > 60; LIPASE 24 U/L (23-300)
[2018-07-10 17:16] LABS: BARBITURATES, UR NEGATIVE (NEGATIVE); BENZODIAZEPINES, UR NEGATIVE (NEGATIVE); OPIATES, UR NEGATIVE (NEGATIVE); PHENCYCLIDINE, UR NEGATIVE (NEGATIVE)
[2018-07-10] MEDS ORDERED: Iodixanol 320 MG/ML 100 ML BOTTLE IV ONE (18:00)
--- NOTE | 2018-07-10 18:11 | US ---
Date of service: 07/10/2018 HISTORY: Abdominal pain COMPARISON: None. TECHNIQUE: Grayscale imaging was performed. FINDINGS: LIVER: Measures 13.5 cm in length. There is diffuse increased echogenicity of the liver parenchyma. No mass. No intrahepatic bile duct dilatation. GALLBLADDER: There are no gallstones, wall thickening or pericholecystic fluid. The sonographic Huertas's sign is negative. COMMON BILE DUCT: Measures 3.4 mm. No stones. No dilatation. PANCREAS: Unremarkable as visualized. No mass. No ductal dilatation. RIGHT KIDNEY: Measures 10.4 cm in length. Normal echogenicity. No calculus, mass, or hydronephrosis. AORTA: No aneurysmal dilatation. IVC: Unremarkable. OTHER FINDINGS: None . IMPRESSION: No cholelithiasis or biliary dilatation. Fatty liver.
[2018-07-10 19:17] LABS: BANDS 1 % (0-2); LYMPHOCYTE 11 % (20-40); MONOCYTE 1 % (0-10); NEUTROPHIL 87 % (50-75); PLATELET ESTIMATE NORMAL (NORMAL); TOTAL CELLS COUNTED 100
[2018-07-10 22:37] VITALS: RESP 20
[2018-07-10 22:39] VITALS: BP 128/72; PULSE 86; TEMP 98.1; O2SAT 99
--- NOTE | 2018-07-11 10:14 | CT ---
Date of service: 07/10/2018 PROCEDURE: CT Abdomen and Pelvis with contrast HISTORY: EPIG PAIN ABN LFT COMPARISON: CT abdomen and pelvis with contrast performed 09/13/17 TECHNIQUE: Contrast dose: 100 mL Visipaque 320 IV Radiation dose: Total exam DLP = 311.2 mGy-cm. This CT exam was performed using one or more of the following dose reduction techniques: Automated exposure control, adjustment of the mA and/or kV according to patient size, and/or use of iterative reconstruction technique. FINDINGS: LOWER THORAX: No visible consolidation, pleural effusion, or pneumothorax. LIVER: Unremarkable. GALLBLADDER AND BILE DUCTS: Unremarkable. PANCREAS: Unremarkable. SPLEEN: Unremarkable. ADRENALS: Unremarkable. KIDNEYS AND URETERS: The kidneys enhance symmetrically. No hydronephrosis or obstructing calculus identified. VASCULATURE: No aortic aneurysm. No atherosclerotic calcification or mural plaque present. BOWEL: Stomach is nondistended. Lack of oral contrast limits evaluation for bowel pathology. Bowel loops appear within normal limits of caliber without evidence of obstruction. APPENDIX: The appendix appears within normal limits of caliber. No secondary signs of acute appendicitis. PERITONEUM: Small fluid in the cul-de-sac. No definite free air. LYMPH NODES: No bulky adenopathy identified. BLADDER: Unremarkable. REPRODUCTIVE: Uterus is present. Bilateral ovaries appear prominent with probable cysts. BONES: No acute osseous abnormality is detected. OTHER FINDINGS: None. IMPRESSION: Bilateral ovaries appear prominent with probable cysts. Small fluid in the cul-de-sac. Suggest further evaluation with pelvic ultrasound if indicated. Preliminary impression was provided by [employer].
== END 2018-07-10 22:00 | disposition home or self-care (01) ==
LOC: C.ER 15:56
DX: R10.13 Epigastric pain (principal)
CPT/HCPCS: 74177; 76705; 80053; 80324; 80345; 80346; 80349; 80353; 80358; 80361; 81001; 81025; 83690; 83992; 85025; 96361; 96374; 96375; 99285; J2270; J7030; Q9967